=== PATIENT | female | born 1950 | race Two or more races ===

== ENCOUNTER 2018-05-09 06:05 | Day surgery (SDC) | payer OTHER | END 2018-05-09 09:10 | disposition home or self-care (01) | LOC: AMB-ENDOS 06:05 | DX: D12.0 Benign neoplasm of cecum (principal); D12.2 Benign neoplasm of ascending colon; Z85.048 Personal history of other malignant neoplasm of rectum, rectosigmoid junction, and anus; Z08 Encounter for follow-up examination after completed treatment for malignant neoplasm ==

== ENCOUNTER 2019-08-07 06:20 | Day surgery (SDC) | payer OTHER ==
[2019-08-07] MEDS ORDERED: ROWASA 4 G4 GM/60 ML RECTAL (09:06)
== END 2019-08-07 10:10 | disposition home or self-care (01) ==
LOC: AMB-ENDOS 06:20
DX: K52.0 Gastroenteritis and colitis due to radiation (principal)

== ENCOUNTER 2020-06-30 09:27 | Outpatient (CLI) | payer OTHER ==
[~2020-06-30 09:27] MED LIST: ROWASA 4 G4 GM/60 ML RECTAL
== END 2020-06-30 09:37 | disposition home or self-care (01) ==
LOC: TOM 09:27
PROVIDERS: ATTEND Surgery
DX: K44.9 Diaphragmatic hernia without obstruction or gangrene (principal); K42.9 Umbilical hernia without obstruction or gangrene; K52.0 Gastroenteritis and colitis due to radiation; R15.2 Fecal urgency; I89.0 Lymphedema, not elsewhere classified; Z86.010 Personal history of colon polyps; Z85.048 Personal history of other malignant neoplasm of rectum, rectosigmoid junction, and anus; L29.0 Pruritus ani

== ENCOUNTER 2021-08-15 09:08 | Outpatient (CLI) | payer OTHER | END 2021-08-15 09:59 | disposition home or self-care (01) | LOC: SONOGRAMA 09:08 | PROVIDERS: ATTEND Pathology Anatomic Pathology & Clinical Pathology | DX: D34 Benign neoplasm of thyroid gland (principal); E04.8 Other specified nontoxic goiter ==